=== PATIENT | male | born 1990 | race Caucasian/White ===

== ENCOUNTER 2017-06-22 05:11 | Emergency (ER) | payer OTHER ==
[~2017-06-22] VITALS: Ht 177.8 cm; Wt 80.7 kg
[2017-06-22] MEDS ORDERED: KETOROLAC 30 MG/1 ML ONE (05:49)
[2017-06-22] MEDS ORDERED: TAMSULOSIN 0.4 MG CAP.ER.24H ONE (05:49)
[2017-06-22] MEDS ORDERED: MORPHINE SULFATE 4 MG/ML, 1ML ONE (05:49)
[2017-06-22] MEDS ORDERED: ONDANSETRON 2MG/ML, 2ML ONE (05:50)
[2017-06-22] MEDS ORDERED: KETOROLAC 30 MG/1 ML IVPush ONE (06:00)
[2017-06-22] MEDS ORDERED: SODIUM CHLORIDE 0.9% 1,000ML IV ONE (06:00)
[2017-06-22] MEDS ORDERED: MORPHINE SULFATE 4 MG/ML, 1ML IVPush PRN (06:00)
[2017-06-22] MEDS ORDERED: TAMSULOSIN 0.4 MG CAP.ER.24H PO ONE (06:00)
[2017-06-22] MEDS ORDERED: ONDANSETRON 2MG/ML, 2ML IVPush ONE (06:00)
[2017-06-22] MEDS ORDERED: SODIUM CHLORIDE FLUSH 10ML SYR IVF ONE (06:00)
[2017-06-22 06:08] LABS: BASOPHILS # (AUTO) 0.05 x10^3/uL (0-0.1); BASOPHILS % (AUTO) 1 % (0-1); EOSINOPHILS # (AUTO) 0.13 x10^3/uL (0-0.4); EOSINOPHILS % (AUTO) 2 % (1-7); LYMPHOCYTES # (AUTO) 2.03 x10^3/uL (1-3.4); LYMPHOCYTES % (AUTO) 34 % (22-44); MD NO; MEAN CORPUSCULAR HEMOGLOBIN 29.9 pg (27.5-34.5); MEAN CORPUSCULAR HGB CONC 35.2 g/dL (33.2-36.2); MEAN PLATELET VOLUME 7.2 fL (7.4-10.4); MONOCYTES # (AUTO) 0.36 x10^3/uL (0.2-0.8); MONOCYTES % (AUTO) 6 % (2-9); NEUTROPHILS # (AUTO) 3.47 x10^3/uL (1.8-6.8); NEUTROPHILS % (AUTO) 58 % (42-75); PLATELET COUNT 286 x10^3/uL (130-400); RED BLOOD COUNT 6.06 x10^6/uL (4.38-5.82); RED CELL DISTRIBUTION WIDTH 12.8 % (9.4-14.8)
[2017-06-22 06:17] LABS: ALANINE AMINOTRANSFERASE 49 U/L (12-78); ALBUMIN 4.1 g/dL (3.4-5.0); ANION GAP 5 mmol/L (5-15); CALCIUM 9.1 mg/dL (8.5-10.1); CHLORIDE 107 mmol/L (98-107)
[2017-06-22 06:19] LABS: ALKALINE PHOSPHATASE 70 U/L (45-117); BILIRUBIN,TOTAL 0.7 mg/dL (0.2-1.0); TOTAL PROTEIN 7.8 g/dL (6.4-8.2)
[2017-06-22 07:15] VITALS: BP 142/88
[2017-06-22 07:38] LABS: MICROSCOPIC AUTO
[2017-06-22 07:40] LABS: CULTURE INDICATED? NO
== END 2017-06-22 09:45 | disposition home or self-care (01) ==
LOC: ED 08:15
DX: N20.0 Calculus of kidney (principal); N20.1 Calculus of ureter
CPT/HCPCS: 36415; 74176; 80053; 81001; 85025; 96361; 96374; 96375; 99285; J1885; J2405; J7030